=== PATIENT | male | born 1975 | race Caucasian/White ===

== ENCOUNTER 2017-01-29 05:42 | Emergency (ER) | payer SELFPAY ==
[~2017-01-29] VITALS: Ht 172.7 cm; Wt 83.9 kg
[2017-01-29 06:37] LABS: BASO % 1 % (0-3); EOS % 9 % (0-3); HEMATOCRIT 40.2 % (39.0-53.0); LYMPH # 2.2 x10^3/uL (1.0-4.8); LYMPH % 31 % (24-48); MEAN CORPUSCULAR HEMOGLOBIN 32 pg (25-35); MEAN CORPUSCULAR HGB CONC 35 g/dL (31-37); MEAN CORPUSCULAR VOLUME 91 fL (79-100); MONO % 7 % (0-9); NEUT % 52 % (31-73); PLATELET COUNT 283 x10^3/uL (140-400); RED BLOOD COUNT 4.42 x10^6/uL (4.30-5.70); RED CELL DISTRIBUTION WIDTH 12.7 % (11.5-14.5)
[2017-01-29 06:49] LABS: CALCIUM 8.9 mg/dL (8.5-10.1); CREATININE 1.2 mg/dL (0.7-1.3); GFR 66.1; POTASSIUM 3.9 mmol/L (3.5-5.1)
[2017-01-29 06:55] LABS: ALBUMIN 4.2 g/dL (3.4-5.0); ALBUMIN/GLOBULIN RATIO 1.1 (1.0-1.7); TOTAL BILIRUBIN 0.3 mg/dL (0.2-1.0)
--- NOTE | 2017-01-29 06:57 | PHYS DOC ---
Past Medical History Past Medical History: No Pertinent History Past Surgical History: No Surgical History Additional Information: vape with nicotine Alcohol Use: Occasionally Additional Information: regularly 6-7beers on thursday Drug Use: None Adult General Chief Complaint Chief Complaint: ABDOMINAL PAIN HPI HPI Patient is a 41 year old male who presents with complaint of abdominal pain. Patient states that his pain started approximately 4 hours prior to arrival. Patient states that he has had recurrent episodes of similar abdominal pain over the past few years. Patient states that his pain typically starts around his belly button and then radiates up towards the top of his abdomen. Patient states that he also gets pain radiates towards the right side of his back. The patient states currently his pain has improved and is rating it 2 out of 10. Patient states that the pain typically comes on at nighttime. Patient has had no formal medical workup for the cause of his symptoms. Patient does not follow the primary care physician at this time. Patient states that he is on daily Zantac which had previously helped control his symptoms. Patient has not missed any doses. Patient did have associated nausea and vomiting with onset of symptoms. Patient states that he ate at approximately 5 last night, eating a cheeseburger and fries. Review of Systems Review of Systems Constitutional: Denies fever or chills [] Eyes: Denies change in visual acuity, redness, or eye pain [] HENT: Denies nasal congestion or sore throat [] Respiratory: Denies cough or shortness of breath [] Cardiovascular: Denies chest pain or edema [] GI: Nausea, vomiting, epigastric abdominal pain, denies bloody stools or diarrhea [] : Denies dysuria or hematuria [] Musculoskeletal: Denies back pain or joint pain [] Integument: Denies rash or skin lesions [] Neurologic: Denies headache, focal weakness or sensory changes [] Current Medications Current Medications Current Medications Medications (Trade) Dose Ordered Sig/Rachele Start Time Stop Time Status Last Admin Dose Admin Al Hydroxide/Mg Hydroxide (Mylanta Plus Xs) 30 ml 1X ONCE 01/29/17 07:15 01/29/17 07:16 DC 01/29/17 07:24 30 ML Dicyclomine HCl (Bentyl) 10 mg 1X ONCE 01/29/17 07:15 01/29/17 07:16 DC 01/29/17 07:29 10 MG Ondansetron HCl (Zofran) 4 mg 1X ONCE 01/29/17 07:15 01/29/17 07:16 DC 01/29/17 07:26 4 MG Sodium Chloride 1,000 ml @ 1,000 mls/hr Q1H 01/29/17 07:15 01/29/17 08:14 DC 01/29/17 07:22 1,000 MLS/HR Allergies Allergies Allergies Coded Allergies Type Severity Reaction Last Updated Verified No Known Drug Allergies 01/29/17 No No known drug allergies Physical Exam Physical Exam Constitutional: Alert, afebrile, no acute distress. [] HENT: Normocephalic, atraumatic, bilateral external ears normal, oropharynx moist, no oral exudates, nose normal. [] Eyes: PERRLA, EOMI, conjunctiva normal, no discharge. [] Neck: Normal range of motion, no tenderness, supple, no stridor. [] Cardiovascular:Heart rate regular rhythm, no murmur [] Lungs & Thorax: Bilateral breath sounds clear to auscultation [] Abdomen: Bowel sounds normal, soft, mild epigastric tenderness to palpation, no guarding or rebound tenderness, no masses, no pulsatile masses. [] Skin: Warm, dry, no erythema, no rash. [] Back: No tenderness, no CVA tenderness. [] Extremities: No tenderness, no cyanosis, no clubbing, ROM intact, no edema. [] Neurologic: Alert and oriented X 3, normal motor function, normal sensory function, no focal deficits noted. [] Current Patient Data Vital Signs Vital Signs Date Time Temp Pulse Resp B/P (MAP) Pulse Ox O2 Delivery O2 Flow Rate FiO2 01/29/17 07:32 56 13 121/68 (85) 97 Room Air 01/29/17 05:48 98.4 98.4 Lab Values Laboratory Tests Test 01/29/17 05:55 01/29/17 08:20 White Blood Count 7.0 x10^3/uL (4.0-11.0) Red Blood Count 4.42 x10^6/uL (4.30-5.70) Hemoglobin 14.0 g/dL (13.0-17.5) Hematocrit 40.2 % (39.0-53.0) Mean Corpuscular Volume 91 fL (79-100) Mean Corpuscular Hemoglobin 32 pg (25-35) Mean Corpuscular Hemoglobin Concent 35 g/dL (31-37) Red Cell Distribution Width 12.7 % (11.5-14.5) Platelet Count 283 x10^3/uL (140-400) Neutrophils (%) (Auto) 52 % (31-73) Lymphocytes (%) (Auto) 31 % (24-48) Monocytes (%) (Auto) 7 % (0-9) Eosinophils (%) (Auto) 9 % (0-3) H Basophils (%) (Auto) 1 % (0-3) Neutrophils # (Auto) 3.6 x10^3uL (1.8-7.7) Lymphocytes # (Auto) 2.2 x10^3/uL (1.0-4.8) Monocytes # (Auto) 0.5 x10^3/uL (0.0-1.1) Eosinophils # (Auto) 0.7 x10^3/uL (0.0-0.7) Basophils # (Auto) 0.0 x10^3/uL (0.0-0.2) Sodium Level 140 mmol/L (136-145) Potassium Level 3.9 mmol/L (3.5-5.1) Chloride Level 104 mmol/L (98-107) Carbon Dioxide Level 28 mmol/L (21-32) Anion Gap 8 (6-14) Blood Urea Nitrogen 19 mg/dL (8-26) Creatinine 1.2 mg/dL (0.7-1.3) Estimated GFR (Cockcroft-Gault) 66.1 BUN/Creatinine Ratio 16 (6-20) Glucose Level 130 mg/dL (70-99) H Calcium Level 8.9 mg/dL (8.5-10.1) Total Bilirubin 0.3 mg/dL (0.2-1.0) Aspartate Amino Transferase (AST) 30 U/L (15-37) Alanine Aminotransferase (ALT) 48 U/L (16-63) Alkaline Phosphatase 71 U/L (46-116) Total Protein 8.0 g/dL (6.4-8.2) Albumin 4.2 g/dL (3.4-5.0) Albumin/Globulin Ratio 1.1 (1.0-1.7) Lipase 157 U/L (73-393) Urine Color Yellow Urine Clarity Cloudy Urine pH 6.0 Urine Specific [place] >=1.030 Urine Protein Negative mg/dL (NEG-TRACE) Urine Glucose (UA) Negative mg/dL (NEG) Urine Ketones (Stick) Negative mg/dL (NEG) Urine Blood Negative (NEG) Urine Nitrite Negative (NEG) Urine Bilirubin Negative (NEG) Urine Urobilinogen Dipstick 0.2 mg/dL (0.2 mg/dL) Urine Leukocyte Esterase Negative (NEG) Urine RBC 0 /HPF (0-2) Urine WBC Occ /HPF (0-4) Urine Squamous Epithelial Cells Occ /LPF Urine Renal Epithelial Cells Few /LPF Urine Amorphous Sediment Present /HPF Urine Bacteria Few /HPF (0-FEW) Urine Mucus Marked /LPF Laboratory Tests 01/29/17 05:55 Laboratory Tests 01/29/17 05:55 EKG EKG Not performed [] Radiology/Procedures Radiology/Procedures [facility] [address] [place] [address] IMAGING REPORT Signed PATIENT: KATHLEEN CABRAL ACCOUNT: [id number] : 1975 LOCATION: ER AGE: 41 SEX: M EXAM STATUS: REG ER ORD. PHYSICIAN: RAMON JOHNSON MD REASON: epigastric pain PROCEDURE: ABDOMEN LTD Ultrasound abdomen limited 01/29/2017 Clinical indication: Epigastric pain. Comparison: None. Findings: Visualized upper abdominal aorta and IVC are unremarkable. The visualized portions of the liver demonstrate mild increased echogenicity suggestive of steatosis which limits underlying parenchyma. No definite suspicious mass or fluid collection the visualized portions. Right kidney is present measuring up to 10.3 cm without collecting system dilatation. Gallbladder is nondilated with minimal amount of layering sludge and no gallbladder wall thickening, cholelithiasis or pericholecystic fluid. Common bile duct is normal in caliber measuring 3 mm. No intrahepatic biliary ductal dilatation. Impression: 1. Minimal gallbladder sludge without sonographic evidence of acute cholecystitis. 2. Mild hepatic steatosis. DICTATED and SIGNED BY: CEZAR WHYTE MD DATE: 01/29/17 0741 CC: RAMON JOHNSON MD; NO PCP ~ [] Course & Med Decision Making Course & Med Decision Making Pertinent Labs and Imaging studies reviewed. (See chart for details) The patient was given IV fluids, Bentyl, Maalox, and Zofran for symptoms. Patient's lab work was unremarkable. Patient's ultrasound imaging showed gallbladder sludge but no evidence of common bile duct obstruction or cholelithiasis. The patient will be continued on Bentyl and will be given a small prescription of [place] to help with breakthrough pain symptoms. Patient referred to Dr. Yang for follow-up in one week. Recommended return to the emergency department for any worsening symptoms. Patient voiced understanding and in agreement with treatment plan. Dragon Disclaimer Dragon Disclaimer This electronic medical record was generated, in whole or in part, using a voice recognition dictation system. Departure Departure Impression: Primary Impression: Abdominal pain Disposition: HOME, SELF-CARE Condition: IMPROVED Referrals: NO PCP (PCP) JOEL YANG MD Patient Instructions: Abdominal Pain (Nonspecific) Additional Instructions: Follow-up with Dr. Yang of gastroenterology in 1 week for reevaluation. Return to the emergency department for any worsening symptoms. Scripts Hydrocodone/Apap 5-325 (NORCO 5-325 TABLET) 1 Each Tablet 1-2 TAB PO Q4-6HRS Y for PAIN, #20 TAB Prov: RAMON JOHNSON MD 01/29/17 Dicyclomine Hcl (BENTYL) 10 Mg Capsule 1 CAP PO TID, #90 CAP 0 Refills Prov: RAMON JOHNSON MD 01/29/17 Ondansetron (ZOFRAN ODT) 4 Mg Tab.rapdis 1 TAB SL Q8HRS Y for NAUSEA/VOMITING, #15 TAB Prov: RAMON JOHNSON MD 01/29/17 Problem Qualifiers Primary Impression: Abdominal pain Abdominal location: epigastric Qualified Codes: R10.13 - Epigastric pain RAMON JOHNSON MD Jan 29, 2017 06:57
[2017-01-29] MEDS ORDERED: IV NORMAL SALINE 1000ML BAG 1,000 ML IV SCH (07:15)
[2017-01-29] MEDS ORDERED: MAG HYDROX/ALUMINUM HYD/SIMETH 30 ML ORAL.SUSP PO ONE (07:15)
[2017-01-29] MEDS ORDERED: DICYCLOMINE 20 MG/2 ML AMPUL. IM ONE (07:15)
[2017-01-29] MEDS ORDERED: ONDANSETRON PF 4 MG/2 ML VIAL. IV ONE (07:15)
--- NOTE | 2017-01-29 07:48 | RAD ---
Ultrasound abdomen limited 01/29/2017 Clinical indication: Epigastric pain. Comparison: None. Findings: Visualized upper abdominal aorta and IVC are unremarkable. The visualized portions of the liver demonstrate mild increased echogenicity suggestive of steatosis which limits underlying parenchyma. No definite suspicious mass or fluid collection the visualized portions. Right kidney is present measuring up to 10.3 cm without collecting system dilatation. Gallbladder is nondilated with minimal amount of layering sludge and no gallbladder wall thickening, cholelithiasis or pericholecystic fluid. Common bile duct is normal in caliber measuring 3 mm. No intrahepatic biliary ductal dilatation. Impression: 1. Minimal gallbladder sludge without sonographic evidence of acute cholecystitis. 2. Mild hepatic steatosis.
[2017-01-29 08:45] VITALS: BP 112/65
[2017-01-29 08:46] LABS: BILIRUBIN,URINE NEGATIVE (NEG); GLUCOSE,URINE NEGATIVE (NEG); NITRITE,URINE NEGATIVE (NEG); PROTEIN,URINE NEGATIVE (NEG-TRACE); UROBILINOGEN,URINE 0.2 mg/dL (0.2 mg/dL)
[2017-01-29 08:56] LABS: BACTERIA,URINE FEW /HPF (0-FEW); RBC,URINE 0 /HPF (0-2); SQUAMOUS EPITHELIAL CELL,UR OCC /LPF; WBC,URINE OCC /HPF (0-4)
[2017-01-29] MEDS ORDERED: DICY10CA53 PO (09:11)
[2017-01-29] MEDS ORDERED: HYDR-971 PO (09:11)
[2017-01-29] MEDS ORDERED: ONDA4TAB10 SL (09:11)
== END 2017-01-29 09:21 | disposition home or self-care (01) ==
LOC: ER 05:42
DX: R10.13 Epigastric pain (principal); R11.2 Nausea with vomiting, unspecified
CPT/HCPCS: 36415; 76705; 80053; 81001; 83690; 85027; 96361; 96372; 96374; 99285; J0500; J2405; J7030

== ENCOUNTER 2017-02-07 23:34 | Inpatient (IN) | payer SELFPAY ==
[~2017-02-07] VITALS: Ht 172.7 cm; Wt 76.0 kg
[~2017-02-07 23:34] MED LIST: DICY10CA53 PO; HYDR-971 PO; ONDA4TAB10 SL
[2017-02-08] MEDS ORDERED: IV NORMAL SALINE 500ML BAG 500 ML IV ONE
[2017-02-08] MEDS ORDERED: LIDO:MAALOX:DONNATAL 1:1:1 15 ML SINGLE DOSE SWSW ONE
[2017-02-08] MEDS ORDERED: ONDANSETRON PF 4 MG/2 ML VIAL. IV ONE
[2017-02-08 00:14] LABS: BASO % 0 % (0-3); EOS % 3 % (0-3); HEMATOCRIT 38.9 % (39.0-53.0); HEMOGLOBIN 13.4 g/dL (13.0-17.5); LYMPH # 2.6 x10^3/uL (1.0-4.8); LYMPH % 29 % (24-48); MEAN CORPUSCULAR HEMOGLOBIN 32 pg (25-35); MEAN CORPUSCULAR HGB CONC 34 g/dL (31-37); MEAN CORPUSCULAR VOLUME 92 fL (79-100); MONO % 6 % (0-9); NEUT % 61 % (31-73); PLATELET COUNT 254 x10^3/uL (140-400); RED BLOOD COUNT 4.24 x10^6/uL (4.30-5.70); RED CELL DISTRIBUTION WIDTH 12.6 % (11.5-14.5); WHITE BLOOD COUNT 8.9 x10^3/uL (4.0-11.0)
[2017-02-08 00:23] LABS: CALCIUM 8.7 mg/dL (8.5-10.1); CREATININE 1.2 mg/dL (0.7-1.3); GFR 66.1; POTASSIUM 3.7 mmol/L (3.5-5.1)
[2017-02-08 00:30] LABS: ALBUMIN 4.1 g/dL (3.4-5.0); ALBUMIN/GLOBULIN RATIO 1.1 (1.0-1.7); TOTAL BILIRUBIN 0.2 mg/dL (0.2-1.0); TOTAL PROTEIN 7.8 g/dL (6.4-8.2)
[2017-02-08] MEDS ORDERED: CONTRAST GIVEN MC PRN (01:15)
[2017-02-08] MEDS ORDERED: IOHEXOL 300 MG/ML 75 ML VIAL IV ONE (01:15)
--- NOTE | 2017-02-08 01:22 | PHYS DOC ---
Past Medical History Past Medical History: No Pertinent History Past Surgical History: No Surgical History Alcohol Use: Occasionally Drug Use: None Adult General Chief Complaint Chief Complaint: ABDOMINAL PAIN HPI HPI Patient is a 41 year old male who presents with abdominal pain. The patient reports several month history of gradually worsening epigastric abdominal pain, usually occurring several hours after eating but not necessarily worse with greasy or fatty foods. He states symptoms have become more frequent now appearing daily, usually at night. Denies fevers or chills, nausea or vomiting, hematemesis, diarrhea or constipation, hematochezia or melena, dysuria or hematuria. Previously healthy, no abdominal surgeries. Does not have a PCP. Seen here 9 days ago for same symptoms, at that time had ultrasound showing sludge in the gallbladder without cholecystitis. Review of Systems Review of Systems Constitutional: Denies fever or chills Eyes: Denies change in visual acuity HENT: Denies nasal congestion or sore throat Respiratory: Denies cough or shortness of breath Cardiovascular: Denies chest pain or edema GI: Reports abdominal pain, denies nausea, vomiting, bloody stools or diarrhea : Denies dysuria or hematuria Musculoskeletal: Denies back pain or joint pain Integument: Denies rash or skin lesions Neurologic: Denies headache, focal weakness or sensory changes Current Medications Current Medications Current Medications Medications (Trade) Dose Ordered Sig/Rachele Start Time Stop Time Status Last Admin Dose Admin Fentanyl Citrate (Fentanyl 2ml Vial) 50 mcg PRN Q15MIN PRN 02/08/17 00:00 02/08/17 23:59 Info (Do NOT chart on this entry -- for MONITORING) 1 each PRN DAILY PRN 02/08/17 01:15 02/10/17 01:14 Iohexol (Omnipaque 300 Mg/ml) 75 ml 1X ONCE 02/08/17 01:15 02/08/17 01:16 DC 02/08/17 01:26 75 ML Multi-Ingredient Mouthwash/Gargle (Gi Cocktail Single Dose) 15 ml 1X ONCE 02/08/17 00:00 02/08/17 00:01 DC 02/08/17 00:50 15 ML Ondansetron HCl (Zofran) 4 mg 1X ONCE 02/08/17 00:00 02/08/17 00:01 DC 02/08/17 00:50 4 MG Sodium Chloride 500 ml @ 0 mls/hr 1X ONCE 02/08/17 00:00 02/08/17 00:01 DC 02/08/17 00:51 0 MLS/HR Allergies Allergies Allergies Coded Allergies Type Severity Reaction Last Updated Verified No Known Drug Allergies 01/29/17 No Physical Exam Physical Exam Constitutional: Well developed, well nourished, no acute distress, non-toxic appearance. HENT: Normocephalic, atraumatic, bilateral external ears normal, oropharynx moist, nose normal. Eyes: PERRLA, EOMI, conjunctiva normal, no discharge. Neck: supple, no stridor. Cardiovascular: RRR, no murmurs, no edema. Lungs & Thorax: LCTAB, no wheezing, no respiratory distress. Abdomen: soft, epigastric and right upper quadrant pain without rebound or guarding, no masses or pulsatile masses, nondistended. Skin: Warm, dry, no erythema, no rash. Back: No CVA tenderness. Extremities: No tenderness, no edema. Neurologic: Alert and oriented X 3, no focal deficits noted. Psychologic: Affect normal, judgement normal, mood normal. Current Patient Data Vital Signs Vital Signs Date Time Temp Pulse Resp B/P (MAP) Pulse Ox O2 Delivery O2 Flow Rate FiO2 02/07/17 23:40 97.8 61 18 139/68 (91) 98 Room Air 97.8 Lab Values Laboratory Tests Test 02/07/17 23:45 White Blood Count 8.9 x10^3/uL (4.0-11.0) Red Blood Count 4.24 x10^6/uL (4.30-5.70) L Hemoglobin 13.4 g/dL (13.0-17.5) Hematocrit 38.9 % (39.0-53.0) L Mean Corpuscular Volume 92 fL (79-100) Mean Corpuscular Hemoglobin 32 pg (25-35) Mean Corpuscular Hemoglobin Concent 34 g/dL (31-37) Red Cell Distribution Width 12.6 % (11.5-14.5) Platelet Count 254 x10^3/uL (140-400) Neutrophils (%) (Auto) 61 % (31-73) Lymphocytes (%) (Auto) 29 % (24-48) Monocytes (%) (Auto) 6 % (0-9) Eosinophils (%) (Auto) 3 % (0-3) Basophils (%) (Auto) 0 % (0-3) Neutrophils # (Auto) 5.4 x10^3uL (1.8-7.7) Lymphocytes # (Auto) 2.6 x10^3/uL (1.0-4.8) Monocytes # (Auto) 0.6 x10^3/uL (0.0-1.1) Eosinophils # (Auto) 0.2 x10^3/uL (0.0-0.7) Basophils # (Auto) 0.0 x10^3/uL (0.0-0.2) Sodium Level 139 mmol/L (136-145) Potassium Level 3.7 mmol/L (3.5-5.1) Chloride Level 104 mmol/L (98-107) Carbon Dioxide Level 27 mmol/L (21-32) Anion Gap 8 (6-14) Blood Urea Nitrogen 18 mg/dL (8-26) Creatinine 1.2 mg/dL (0.7-1.3) Estimated GFR (Cockcroft-Gault) 66.1 BUN/Creatinine Ratio 15 (6-20) Glucose Level 157 mg/dL (70-99) H Calcium Level 8.7 mg/dL (8.5-10.1) Total Bilirubin 0.2 mg/dL (0.2-1.0) Aspartate Amino Transferase (AST) 23 U/L (15-37) Alanine Aminotransferase (ALT) 49 U/L (16-63) Alkaline Phosphatase 69 U/L (46-116) Troponin I Quantitative < 0.017 ng/mL (0.000-0.055) Total Protein 7.8 g/dL (6.4-8.2) Albumin 4.1 g/dL (3.4-5.0) Albumin/Globulin Ratio 1.1 (1.0-1.7) Lipase 181 U/L (73-393) Laboratory Tests 02/07/17 23:45 Laboratory Tests 02/07/17 23:45 EKG EKG Interpreted by me: Normal sinus rhythm rate 63, no acute ST or T wave changes, normal intervals, no ectopy. [] Radiology/Procedures Radiology/Procedures PROCEDURE: CT ABD PELV W/ IV CONTRST ONLY EXAM: Abdomen and pelvis CT with intravenous contrast. HISTORY: 41-year-old male with upper abdominal pain. TECHNIQUE: Computed tomographic images of the abdomen and pelvis were obtained following the administration of 75 cc of Omni 300 intravenous contrast. Multiplanar reformatting was performed. PQRS compliance statement: One or more of the following individualized dose reduction techniques were utilized for this examination: 1. Automated exposure control 2. Adjustment of the mA and/or kV according to patient size 3. Use of iterative reconstruction technique COMPARISON: None. FINDINGS: Bibasilar atelectasis is present. The liver, spleen, pancreas, adrenal glands and bilateral kidneys demonstrate no focal abnormality. Mild gallbladder wall thickening is suggested, without calcified gallstones nor pericholecystic fluid seen. The GI tract demonstrates no dilated bowel loops to suggest obstruction. Appendix is normal in caliber and air-filled in the right lower quadrant. The urinary bladder is grossly unremarkable. No intra-abdominal or pelvic free fluid, free air or significant lymphadenopathy is seen. Aorta is normal in caliber. Overlying soft tissues and visualized osseous structures demonstrate no acute or suspicious finding. IMPRESSION: Mild gallbladder wall thickening, without gallstones nor pericholecystic fluid seen. Acute cholecystitis is a consideration, best evaluated with ultrasound. Otherwise, no acute intra-abdominal or pelvic process seen. Electronically signed by: Jana Luke MD (02/08/2017 1:42 AM) [facility] DICTATED and SIGNED BY: JANA LUKE MD DATE: 02/08/17 0137[] Course & Med Decision Making Course & Med Decision Making Pertinent Labs and Imaging studies reviewed. (See chart for details) The patient lives with abdominal pain. Give IV fluids, Zofran, pain medication. He did feel better. Obtained labs, UA, EKG, CT of the abdomen and pelvis. CT shows no significant abnormality except thickening of the gallbladder wall which was not present on ultrasound at previous visit. There is possibility of acute cholecystitis. He is afebrile with normal white blood cell count, normal LFTs. Likely symptomatic cholelithiasis but he does remain symptomatic with increasingly worse symptoms. He does not feel well enough to go home. I recommended admission to the hospital for surgery/possible GI consultation. For now we'll hold off antibiotics but will repeat ultrasound to evaluate for cholecystitis. Antibiotics not given at this time. Discussed with Dr. Little who agrees to admit to inpatient status. Surgery consult to Dr. Rodriguez. The patient is being admitted in stable condition. [] Dragon Disclaimer Dragon Disclaimer This electronic medical record was generated, in whole or in part, using a voice recognition dictation system. Departure Departure Impression: Primary Impression: Abdominal pain Disposition: ADMITTED INPATIENT Admitting Physician: Lucero Little Condition: STABLE Referrals: NO PCP (PCP) MIKE SHERMAN MD Feb 08, 2017 01:22
--- NOTE | 2017-02-08 01:45 | RAD ---
EXAM: Abdomen and pelvis CT with intravenous contrast. HISTORY: 41-year-old male with upper abdominal pain. TECHNIQUE: Computed tomographic images of the abdomen and pelvis were obtained following the administration of 75 cc of Omni 300 intravenous contrast. Multiplanar reformatting was performed. RS compliance statement: One or more of the following individualized dose reduction techniques were utilized for this examination: 1. Automated exposure control 2. Adjustment of the mA and/or kV according to patient size 3. Use of iterative reconstruction technique COMPARISON: None. FINDINGS: Bibasilar atelectasis is present. The liver, spleen, pancreas, adrenal glands and bilateral kidneys demonstrate no focal abnormality. Mild gallbladder wall thickening is suggested, without calcified gallstones nor pericholecystic fluid seen. The GI tract demonstrates no dilated bowel loops to suggest obstruction. Appendix is normal in caliber and air-filled in the right lower quadrant. The urinary bladder is grossly unremarkable. No intra-abdominal or pelvic free fluid, free air or significant lymphadenopathy is seen. Aorta is normal in caliber. Overlying soft tissues and visualized osseous structures demonstrate no acute or suspicious finding. IMPRESSION: Mild gallbladder wall thickening, without gallstones nor pericholecystic fluid seen. Acute cholecystitis is a consideration, best evaluated with ultrasound. Otherwise, no acute intra-abdominal or pelvic process seen. Electronically signed by: Chloé Luke MD (02/08/2017 1:42 AM) [place] [id number]
[2017-02-08 01:47] LABS: BILIRUBIN,URINE NEGATIVE (NEG); GLUCOSE,URINE NEGATIVE (NEG); NITRITE,URINE NEGATIVE (NEG); PROTEIN,URINE NEGATIVE (NEG-TRACE); UROBILINOGEN,URINE 0.2 mg/dL (0.2 mg/dL)
[2017-02-08 02:06] LABS: BACTERIA,URINE 0 /HPF (0-FEW); RBC,URINE OCC /HPF (0-2); SQUAMOUS EPITHELIAL CELL,UR FEW /LPF; WBC,URINE 0 /HPF (0-4)
[2017-02-08] MEDS ORDERED: ONDANSETRON PF 4 MG/2 ML VIAL. IV PRN ×4 (02:30→13:45)
[2017-02-08 02:39] VITALS: BP 147/79
[2017-02-08] MEDS: IV NORMAL SALINE 1000ML BAG 1,000 ML IV SCH ×3 (02:51→18:00)
[2017-02-08] MEDS: MORPHINE SULFATE 4 MG/ML DISP.SYRIN. IV PRN ×2 (03:03→17:33)
[2017-02-08 07:00] VITALS: BP_SYST 171; BP_SYST 97; BP_DIAS 105; BP_DIAS 62
[2017-02-08] MEDS: DICYCLOMINE HCL 10 MG CAPSULE PO SCH ×3 (09:00→20:30)
[2017-02-08] MEDS ORDERED: HYDROcodone/APAP 5/325MG 1 TAB TABLET PO PRN ×2 (09:00→13:45)
[2017-02-08] MEDS ORDERED: ACETAMINOPHEN 500 MG TABLET PO PRN (09:00)
[2017-02-08] MEDS ORDERED: ONDANSETRON ODT 4 MG TAB.RAPDIS. PO PRN (09:00)
--- NOTE | 2017-02-08 09:09 | RAD ---
Ultrasound of the right upper quadrant of the abdomen 02/08/2017 Clinical history: Abdominal pain for 2 days. Technique: A real-time ultrasound examination of the right upper quadrant of the abdomen was performed. Multiple images were obtained. Findings: Comparison is made to the patient's CT scan of the abdomen performed earlier today. The gallbladder is contracted. A 1.2 cm gallstone is seen within the neck of the gallbladder. The gallbladder wall is thickened measuring 6 mm. Pericholecystic fluid is seen. These findings are consistent with acute cholecystitis. The common bile duct measures 4 mm in diameter which is within limits. The liver is normal in size measuring 15.5 cm in length. Increased echogenicity of the liver parenchyma is seen consistent with mild fatty infiltration. The visualized portions of the pancreas and right kidney are within normal limits. Impression: Findings consistent with acute cholecystitis.
[2017-02-08 10:30] VITALS: BP 113/70
[2017-02-08] MEDS ORDERED: MIDAZOLAM HCL/PF 2 MG/2 ML VIAL. ONE (10:38)
[2017-02-08] MEDS ORDERED: DESFLURANE 61 TO 120 MINUTES IH ONE (10:38)
[2017-02-08] MEDS ORDERED: fentaNYL PF VIAL 100 MCG/2 ML VIAL ONE ×2 (10:38→12:03)
[2017-02-08] MEDS ORDERED: LIDOCAINE 2% PF Vial for OR 5 ML VIAL. ONE (10:39)
[2017-02-08] MEDS ORDERED: DEXAMETHASONE SOD PHOS 20 MG/5 ML VIAL. ONE (10:39)
[2017-02-08] MEDS ORDERED: PROPOFOL 20 ML IV ONE (10:39)
[2017-02-08] MEDS ORDERED: NEOSTIGMINE 10 MG/10 ML VIAL. ONE (10:39)
[2017-02-08] MEDS ORDERED: KETOROLAC 60 MG/2 ML INJ FOR OR. ONE (10:39)
[2017-02-08] MEDS ORDERED: GLYCOPYRROLATE 1 MG/5 ML VIAL. ONE (10:39)
[2017-02-08] MEDS ORDERED: ONDANSETRON PF 4 MG/2 ML VIAL. ONE (10:39)
[2017-02-08] MEDS ORDERED: IV RINGERS,LACTATED 1000ML 1,000 ML IV SCH (10:59)
[2017-02-08] MEDS ORDERED: MORPHINE SULFATE 2 MG/ML DISP.SYRIN. IV PRN (11:00)
[2017-02-08] MEDS ORDERED: fentaNYL PF VIAL 100 MCG/2 ML VIAL IV PRN ×2 (11:00)
[2017-02-08] MEDS ORDERED: HYDROmorphone 2 MG/ML VIAL IV PRN (11:00)
[2017-02-08] MEDS ORDERED: PROCHLORPERAZINE 10 MG/2 ML VIAL. IV PRN (11:00)
[2017-02-08] MEDS ORDERED: LIDOCAINE 1% 1 ML SYRINGE. ID PRN (11:00)
[2017-02-08] MEDS ORDERED: IOHEXOL 300 MG/ML 50 ML VIAL. ONE (11:01)
[2017-02-08] MEDS ORDERED: SURGICEL HEMOSTAT 4X8 EACH. ONE (11:01)
[2017-02-08] MEDS ORDERED: BISACODYL 10 MG SUPP.RECT. ONE (11:01)
[2017-02-08] MEDS ORDERED: BUPIVAC MPF-EPI 0.5%-1:200000 10 ML VIAL. ONE (11:01)
[2017-02-08] MEDS ORDERED: HEPARIN for IV BOLUS 10,000 UNIT/10 ML VIAL. ONE (11:01)
--- NOTE | 2017-02-08 11:13 | PDOC1 ---
History and Physical Date of Admission Date of Admission DATE: 02/08/17 TIME: 11:08 Identification/Chief Complaint Chief Complaint abd pain Problems: Source Source: Caregiver, Chart review, Patient History of Present Illness History of Present Illness 41 y.o HISDpanic male, speaks yakut, 4-5 mo hx epigastic pain, intermittent, waxes and wanes, he noticed more at night and maybe after eating food, got worse few days ago and went to ER last night, NO fevers, emesis or change inBM. CT shows GB Sludge. US shows: Impression: Findings consistent with acute cholecystitis. Pt agreeable to sx if needs. HAs been NPO LAbs ok. VS ok ABd exam: tenderness in epigatsric area, and RUQ< no guarding no rebound, NO known alleviating factors, Past Medical History Cardiovascular: No pertinent hx Pulmonary: No pertinent hx GI: No pertinent hx Heme/Onc: No pertinent hx Hepatobiliary: No pertinent hx Psych: No pertinent hx Rheumatologic: No pertinent hx Infectious disease: No pertinent hx ENT: No pertinent hx Renal/: No pertinent hx Endocrine: No pertinent hx Dermatology: No pertinent hx Past Surgical History Past Surgical History: No pertinent history Family History Family History: Family History Unknown Social History Smoke: No ALCOHOL: occassional Drugs: None Current Problem List Problem List Problems Medical Problems: (1) Abdominal pain Status: Acute Problems: Current Medications Current Medications Current Medications Sodium Chloride 500 ml @ 0 mls/hr 1X ONCE IV Last administered on 02/08/17 00 :51; Start 02/08/17 at 00:00; Stop 02/08/17 at 00:01; Status DC Ondansetron HCl (Zofran) 4 mg 1X ONCE IV Last administered on 02/08/17 00:50 ; Start 02/08/17 at 00:00; Stop 02/08/17 at 00:01; Status DC Multi-Ingredient Mouthwash/Gargle (Gi Cocktail Single Dose) 15 ml 1X ONCE SWSW Last administered on 02/08/17 00:50; Start 02/08/17 at 00:00; Stop 02/08/17 at 00:01; Status DC Fentanyl Citrate (Fentanyl 2ml Vial) 50 mcg PRN Q15MIN PRN IV PAIN GREATER THAN 3/10; Start 02/08/17 at 00:00; Stop 02/08/17 at 23:59 Iohexol (Omnipaque 300 Mg/ml) 75 ml 1X ONCE IV Last administered on 02/08/17 01:26; Start 02/08/17 at 01:15; Stop 02/08/17 at 01:16; Status DC Info (Do NOT chart on this entry -- for MONITORING) 1 each PRN DAILY PRN MC SEE COMMENTS; Start 02/08/17 at 01:15; Stop 02/10/17 at 01:14 Ondansetron HCl (Zofran) 4 mg PRN Q8HRS PRN IV NAUSEA/VOMITING Last administered on 02/08/17 03:02; Start 02/08/17 at 02:30; Stop 02/08/17 at 08:58 ; Status DC Morphine Sulfate 4 mg PRN Q2HR PRN IV PAIN Last administered on 02/08/17 03:03 ; Start 02/08/17 at 02:00; Stop 02/09/17 at 01:59 Sodium Chloride 1,000 ml @ 125 mls/hr Q8H IV Last administered on 02/08/17 02 :51; Start 02/08/17 at 02:00; Stop 02/09/17 at 01:59 Cefazolin Sodium/ Dextrose 50 ml @ 100 mls/hr 1X PREOP PRN IV PRE-OP; Start at 08:15; Stop 02/09/17 at 18:00 Ondansetron HCl (Zofran) 4 mg PRN Q6HRS PRN IV NAUSEA/VOMITING; Start 02/08/17 at 08:57; Stop 02/09/17 at 08:56 Acetaminophen (Tylenol) 500 mg PRN Q6HRS PRN PO MILD PAIN / TEMP; Start at 09:00 Dicyclomine HCl (Bentyl) 10 mg TID PO ; Start 02/08/17 at 09:00 Acetaminophen/ Hydrocodone Bitart (Lortab 5/325) 1 tab PRN TID PRN PO PAIN; Start 02/08/17 at 09:00 Ondansetron HCl (Zofran Odt) 4 mg PRN Q8HRS PRN PO NAUSEA/VOMITING; Start 02/08 at 09:00 Desflurane (Suprane) 60 ml STK-MED ONCE IH ; Start 02/08/17 at 10:38; Stop 02/08 at 10:39; Status DC Midazolam HCl (Versed) 2 mg STK-MED ONCE .ROUTE ; Start 02/08/17 at 10:38; Stop 02/08/17 at 10:39; Status DC Fentanyl Citrate (Fentanyl 2ml Vial) 100 mcg STK-MED ONCE .ROUTE ; Start at 10:38; Stop 02/08/17 at 10:39; Status DC Glycopyrrolate (Robinul) 1 mg STK-MED ONCE .ROUTE ; Start 02/08/17 at 10:39; Stop 02/08/17 at 10:40; Status DC Propofol 20 ml @ As Directed STK-MED ONCE IV ; Start 02/08/17 at 10:39; Stop at 10:40; Status DC Dexamethasone Sodium Phosphate (Decadron) 20 mg STK-MED ONCE .ROUTE ; Start at 10:39; Stop 02/08/17 at 10:40; Status DC Ondansetron HCl (Zofran) 4 mg STK-MED ONCE .ROUTE ; Start 02/08/17 at 10:39; Stop 02/08/17 at 10:40; Status DC Ketorolac Tromethamine (Toradol For Or Only) 60 mg STK-MED ONCE .ROUTE ; Start 02/08/17 at 10:39; Stop 02/08/17 at 10:40; Status DC Neostigmine Methylsulfate (Bloxiverz) 10 mg STK-MED ONCE .ROUTE ; Start at 10:39; Stop 02/08/17 at 10:40; Status DC Lidocaine HCl (Lidocaine Pf 2% Vial) 5 ml STK-MED ONCE .ROUTE ; Start 02/08/17 at 10:39; Stop 02/08/17 at 10:40; Status DC Ondansetron HCl (Zofran) 4 mg PRN Q6HRS PRN IV NAUSEA/VOMITING; Start 02/08/17 at 11:00; Stop 02/09/17 at 10:59 Fentanyl Citrate (Fentanyl 2ml Vial) 25 mcg PRN Q5MIN PRN IV MILD PAIN; Start 02/08/17 at 11:00; Stop 02/09/17 at 10:59 Fentanyl Citrate (Fentanyl 2ml Vial) 50 mcg PRN Q5MIN PRN IV MODERATE PAIN; Start 02/08/17 at 11:00; Stop 02/09/17 at 10:59 Morphine Sulfate 1 mg PRN Q10MIN PRN IV SEVERE PAIN; Start 02/08/17 at 11:00; Stop 02/09/17 at 10:59 Ringer's Solution 1,000 ml @ 30 mls/hr Q24H IV ; Start 02/08/17 at 10:59; Stop 02/08/17 at 22:58 Lidocaine HCl 2 ml PRN 1X PRN ID PRIOR TO IV START; Start 02/08/17 at 11:00; Stop 02/09/17 at 10:59 Hydromorphone HCl (Dilaudid) 0.5 mg PRN Q10MIN PRN IV SEV PAIN, Second choice; Start 02/08/17 at 11:00; Stop 02/09/17 at 10:59 Prochlorperazine Edisylate (Compazine) 5 mg PACU PRN PRN IV NAUSEA, MRX1; Start 02/08/17 at 11:00; Stop 02/09/17 at 10:59 Cellulose 1 each STK-MED ONCE .ROUTE ; Start 02/08/17 at 11:01; Stop 02/08/17 at 11:02; Status DC Iohexol (Omnipaque 300 Mg/ml) 50 ml STK-MED ONCE .ROUTE ; Start 02/08/17 at 11: 01; Stop 02/08/17 at 11:02; Status DC Heparin Sodium (Porcine) (Heparin Sodium) 10,000 unit STK-MED ONCE .ROUTE ; Start 02/08/17 at 11:01; Stop 02/08/17 at 11:02; Status DC Bisacodyl (Dulcolax Supp) 10 mg STK-MED ONCE .ROUTE ; Start 02/08/17 at 11:01; Stop 02/08/17 at 11:02; Status DC Bupivacaine HCl/ Epinephrine Bitart (Sensorcain-Mpf Epi 0.5%-1:[id number]) 10 ml STK -MED ONCE .ROUTE ; Start 02/08/17 at 11:01; Stop 02/08/17 at 11:02; Status DC Active Scripts Active Bynum 5-325 Tablet (Acetaminophen/Hydrocodone Bitart) 1 Each Tablet 1-2 Tab PO Q4-6HRS PRN Bentyl (Dicyclomine Hcl) 10 Mg Capsule 1 Cap PO TID Zofran Odt (Ondansetron) 4 Mg Tab.rapdis 1 Tab SL Q8HRS PRN Allergies Allergies: Coded Allergies: No Known Drug Allergies (Unverified , 01/29/17) ROS Review of System as per HPI, all else is neg Physical Exam General: Alert, Oriented X3, Cooperative, No acute distress HEENT: Atraumatic, PERRLA Lungs: Clear to auscultation Heart: S1S2 Cardiovascular: S1, S2 Breasts: Normal Abdomen: Soft, Other (tenderness epigatsric and rUQ areas) Rectal Exam: not examined PELVIC: Nml ext genitalia Extremities: No clubbing Skin: No rashes Neuro: Normal gait Psych/Mental Status: Mental status NL, Mood NL Vitals Vitals Vital Signs Date Time Temp Pulse Resp B/P (MAP) Pulse Ox O2 Delivery O2 Flow Rate FiO2 02/08/17 08:00 Room Air 02/08/17 07:00 97.9 55 18 97/62 (74) 96 97.9 Labs Labs Laboratory Tests Test 02/07/17 23:45 02/08/17 01:36 White Blood Count 8.9 x10^3/uL (4.0-11.0) Red Blood Count 4.24 x10^6/uL (4.30-5.70) Hemoglobin 13.4 g/dL (13.0-17.5) Hematocrit 38.9 % (39.0-53.0) Mean Corpuscular Volume 92 fL (79-100) Mean Corpuscular Hemoglobin 32 pg (25-35) Mean Corpuscular Hemoglobin Concent 34 g/dL (31-37) Red Cell Distribution Width 12.6 % (11.5-14.5) Platelet Count 254 x10^3/uL (140-400) Neutrophils (%) (Auto) 61 % (31-73) Lymphocytes (%) (Auto) 29 % (24-48) Monocytes (%) (Auto) 6 % (0-9) Eosinophils (%) (Auto) 3 % (0-3) Basophils (%) (Auto) 0 % (0-3) Neutrophils # (Auto) 5.4 x10^3uL (1.8-7.7) Lymphocytes # (Auto) 2.6 x10^3/uL (1.0-4.8) Monocytes # (Auto) 0.6 x10^3/uL (0.0-1.1) Eosinophils # (Auto) 0.2 x10^3/uL (0.0-0.7) Basophils # (Auto) 0.0 x10^3/uL (0.0-0.2) Sodium Level 139 mmol/L (136-145) Potassium Level 3.7 mmol/L (3.5-5.1) Chloride Level 104 mmol/L (98-107) Carbon Dioxide Level 27 mmol/L (21-32) Anion Gap 8 (6-14) Blood Urea Nitrogen 18 mg/dL (8-26) Creatinine 1.2 mg/dL (0.7-1.3) Estimated GFR (Cockcroft-Gault) 66.1 BUN/Creatinine Ratio 15 (6-20) Glucose Level 157 mg/dL (70-99) Calcium Level 8.7 mg/dL (8.5-10.1) Total Bilirubin 0.2 mg/dL (0.2-1.0) Aspartate Amino Transf (AST/SGOT) 23 U/L (15-37) Alanine Aminotransferase (ALT/SGPT) 49 U/L (16-63) Alkaline Phosphatase 69 U/L (46-116) Troponin I Quantitative < 0.017 ng/mL (0.000-0.055) Total Protein 7.8 g/dL (6.4-8.2) Albumin 4.1 g/dL (3.4-5.0) Albumin/Globulin Ratio 1.1 (1.0-1.7) Lipase 181 U/L (73-393) Urine Collection Type Unknown Urine Color Yellow Urine Clarity Clear Urine pH 6.0 Urine Specific [place] >=1.030 Urine Protein Negative mg/dL (NEG-TRACE) Urine Glucose (UA) Negative mg/dL (NEG) Urine Ketones (Stick) Negative mg/dL (NEG) Urine Blood Negative (NEG) Urine Nitrite Negative (NEG) Urine Bilirubin Negative (NEG) Urine Urobilinogen Dipstick 0.2 mg/dL (0.2 mg/dL) Urine Leukocyte Esterase Negative (NEG) Urine RBC Occ /HPF (0-2) Urine WBC 0 /HPF (0-4) Urine Squamous Epithelial Cells Few /LPF Urine Bacteria 0 /HPF (0-FEW) Urine Mucus Mod /LPF Laboratory Tests Test 02/07/17 23:45 02/08/17 01:36 White Blood Count 8.9 x10^3/uL (4.0-11.0) Red Blood Count 4.24 x10^6/uL (4.30-5.70) Hemoglobin 13.4 g/dL (13.0-17.5) Hematocrit 38.9 % (39.0-53.0) Mean Corpuscular Volume 92 fL (79-100) Mean Corpuscular Hemoglobin 32 pg (25-35) Mean Corpuscular Hemoglobin Concent 34 g/dL (31-37) Red Cell Distribution Width 12.6 % (11.5-14.5) Platelet Count 254 x10^3/uL (140-400) Neutrophils (%) (Auto) 61 % (31-73) Lymphocytes (%) (Auto) 29 % (24-48) Monocytes (%) (Auto) 6 % (0-9) Eosinophils (%) (Auto) 3 % (0-3) Basophils (%) (Auto) 0 % (0-3) Neutrophils # (Auto) 5.4 x10^3uL (1.8-7.7) Lymphocytes # (Auto) 2.6 x10^3/uL (1.0-4.8) Monocytes # (Auto) 0.6 x10^3/uL (0.0-1.1) Eosinophils # (Auto) 0.2 x10^3/uL (0.0-0.7) Basophils # (Auto) 0.0 x10^3/uL (0.0-0.2) Sodium Level 139 mmol/L (136-145) Potassium Level 3.7 mmol/L (3.5-5.1) Chloride Level 104 mmol/L (98-107) Carbon Dioxide Level 27 mmol/L (21-32) Anion Gap 8 (6-14) Blood Urea Nitrogen 18 mg/dL (8-26) Creatinine 1.2 mg/dL (0.7-1.3) Estimated GFR (Cockcroft-Gault) 66.1 BUN/Creatinine Ratio 15 (6-20) Glucose Level 157 mg/dL (70-99) Calcium Level 8.7 mg/dL (8.5-10.1) Total Bilirubin 0.2 mg/dL (0.2-1.0) Aspartate Amino Transf (AST/SGOT) 23 U/L (15-37) Alanine Aminotransferase (ALT/SGPT) 49 U/L (16-63) Alkaline Phosphatase 69 U/L (46-116) Troponin I Quantitative < 0.017 ng/mL (0.000-0.055) Total Protein 7.8 g/dL (6.4-8.2) Albumin 4.1 g/dL (3.4-5.0) Albumin/Globulin Ratio 1.1 (1.0-1.7) Lipase 181 U/L (73-393) Urine Collection Type Unknown Urine Color Yellow Urine Clarity Clear Urine pH 6.0 Urine Specific [place] >=1.030 Urine Protein Negative mg/dL (NEG-TRACE) Urine Glucose (UA) Negative mg/dL (NEG) Urine Ketones (Stick) Negative mg/dL (NEG) Urine Blood Negative (NEG) Urine Nitrite Negative (NEG) Urine Bilirubin Negative (NEG) Urine Urobilinogen Dipstick 0.2 mg/dL (0.2 mg/dL) Urine Leukocyte Esterase Negative (NEG) Urine RBC Occ /HPF (0-2) Urine WBC 0 /HPF (0-4) Urine Squamous Epithelial Cells Few /LPF Urine Bacteria 0 /HPF (0-FEW) Urine Mucus Mod /LPF VTE Prophylaxis Ordered VTE Prophylaxis Devices: Yes VTE Pharmacological Prophylaxi: Yes Assessment/Plan Assessment/Plan 1. Acute cholecystitis PLAN: NPO, IVF Will need lap loi Kang pt - agreeable ARIELLE DUEÑAS MD Feb 08, 2017 11:13
--- NOTE | 2017-02-08 11:58 | RAD ---
Intraoperative cholangiogram 02/08/2017 Clinical history: Post laparoscopic cholecystectomy. An intraoperative cholangiogram was performed. The total fluoroscopic time is listed as 0.17 minutes. A single digital spot radiograph of the right upper quadrant of the abdomen was obtained. This demonstrates contrast opacifying the common hepatic duct, left and right hepatic ducts and their branches and the common bile duct. These ducts are normal in caliber. Free spillage of contrast into the duodenum is noted. No filling defect is seen. Impression: Negative study.
[2017-02-08] MEDS ORDERED: PROCHLORPERAZINE 10 MG/2 ML VIAL. ONE (12:03)
[2017-02-08] MEDS: fentaNYL PF VIAL 100 MCG/2 ML VIAL IV PRN ×2 (12:21→12:52)
--- NOTE | 2017-02-08 13:44 | PDOC4 ---
OPERATIVE NOTE Date: Date: Feb 08, 2017 Pre-Op Diagnosis: Calculous cholecystitis Post-Op Diagnosis: same Procedure Performed: Laparoscopic cholecystectomy with cholangiogram Surgeon: Syd Obando Anesthesia Type: GETA plus marcaine 0.5% with epinephrine Blood Loss: minimal Specimans Obtained: gallbladder Findings: large gallstone, edematous indurated gallbladder, normal appearing cholangiogram Complications: none Operative Note: Patient was taken to the OR, induced under GETA, and prepped in the usual fashion. 5 mm port placed in supraumbilical area, right upper quadrant area and 10 port placed in epigastric. The abdominal cavity was normal except for the gallbladder as described above. The triangle of calot was bluntly dissected out and the critical view was obtained. The cystic artery was divided between clips. Cholangiogram was obtained, which was normal. The cystic duct was ligated with hemolok and clips. Gallbladder was taken off the fossa using cautery, placed in an endocatch bag and sent to pathology. Copious irrigation. No evidence of bleeding or bile leak. Fascia repair with 0 vicry. Skin repair with 4 0 monocryl. Dressing applied. Patient tolerated procedure well, sent to PACU in a stable condition. All counts were correct, no immediate complications. SYD OBANDO MD Feb 08, 2017 13:44
[2017-02-08] MEDS ORDERED: KETOROLAC TROMETHAMINE 30 MG/ML INJ. IV PRN (13:45)
[2017-02-08] MEDS ORDERED: 0.9 % SODIUM CHLORIDE 10 ML DISP.SYRIN. IV PRN (13:45)
[2017-02-08] MEDS ORDERED: DEXTROSE 50% 25 GM / 50ML DISP.SYRIN. IV PRN (13:45)
[2017-02-08] MEDS: IV RINGERS,LACTATED 1000ML 1,000 ML IV SCH ×2 (14:30→23:36)
--- NOTE | 2017-02-08 14:53 | EKG ---
[facility] [address] [place] [address] Test Date: 2017-02-08 Test Time: 00:49:34 Pat Name: KATHLEEN CABRAL Department: Room: Gender: M [employer]: : 1975 Requested By: MIKE SHERMAN Order Number: [id number] Reading MD: Measurements Intervals [place]ard Rate: 63 P: 43 OH: 154 QRS: 53 QRSD: 88 T: 31 QT: 394 QTc: 406 Interpretive Statements SINUS RHYTHM QRS(T) CONTOUR ABNORMALITY CONSIDER ANTEROSEPTAL MYOCARDIAL DAMAGE RI6.01 Unconfirmed report No previous ECG available for comparison
[2017-02-08 15:00] VITALS: BP 127/73
[2017-02-08 19:00] VITALS: BP 117/73
[2017-02-08] MEDS: DOCUSATE SODIUM 100 MG CAPSULE. PO SCH (20:30)
[2017-02-08 23:00] VITALS: BP 125/65
--- NOTE | 2017-02-09 00:57 | ACF ---
Admission Forms Criteria ABDOMINAL PAIN Clinical Indications for Admission to Inpatient Care ( [place]/check or initial the applicable condition/criteria): Admission is indicated for ANY ONE of the following (1)(2)(3)(4)(5)(6): [ ]I. Surgery needed that cannot be performed on ambulatory basis [ ]II. Peritoneal signs present (eg, rebound tenderness, rigidity) [ ]III. Evaluation requires patient to not eat or drink for extended period ( eg, more than 24 hours). [X ]IV. Inpatient admission required[B] rather than observation care (see Abdominal Pain: Observation Care guideline as appropriate) because of ANY ONE of the following(7)(8)(9): [ ] a) Hemodynamic instability [ ]b) Severe pain requiring acute inpatient management [X ]c) Identification of etiology or finding that requires inpatient care (eg, aortic dissection, free air,bowel ischemia)(10) [ ]d) Absent bowel sounds with complete ileus (11) [ ]e) Signs of intestinal obstruction[C] [ ]f) Suspected toxic megacolon [ ]g) Severe electrolyte abnormalities requiring inpatient care [ ]h) High fever or infection requiring inpatient admission as indicated by ANY ONE of the following (12)(13): [ ]i) Appropriate outpatient or observation care antimicrobial treatment unavailable, not effective, or not feasible [ ]ii) Documented bacteremia [ ]iii) Temperature greater than 104.9 degrees F (40.5 degrees C) (oral) [ ]iv) Temperature greater than 103.1 degrees F (39.5 degrees C) ( oral) or less than 96.8 degrees F (36 degrees C) (rectal) that does not respond to all emergency treatment measures [ ]i) IV fluid required rather than oral rehydration to replace significant ongoing (eg, for greater than 24 hours) losses (greater than 3 L/m2 per day)(14)(15) [ ]j) Percutaneous or open drainage (eg, abscess, biliary tract) procedures [ ]k) Parenteral nutrition regimen that must be implemented on inpatient basis [ ]l) Other condition, treatment, or monitoring requiring inpatient admission Extended stay beyond goal length of stay may be needed for (1)(3)(4)(10)(16): [ ]a) Surgery (e.g., colectomy, revascularization procedure) [ ]b) Persistent abdominal pain with suspected intra-abdominal process [ ]c) Diagnosed condition requiring continued stay (e.g., pancreatitis, complicated diverticulitis) The original [facility] content created by [facility] has been revised. The portions of the content which have been revised are identified through the use of italic text, and [facility] has neither reviewed nor approved the modified material.All other unmodified content is copyright [facility]. Please see references footnoted in the original [facility] edition 2015 Admission Criteria Met?: Yes CAROL ANN GOLDEN Feb 09, 2017 00:57
[2017-02-09 03:00] VITALS: BP 97/71
[2017-02-09 07:04] LABS: BASO % 0 % (0-3); EOS % 0 % (0-3); HEMATOCRIT 39.4 % (39.0-53.0); HEMOGLOBIN 12.9 g/dL (13.0-17.5); LYMPH # 1.5 x10^3/uL (1.0-4.8); LYMPH % 10 % (24-48); MEAN CORPUSCULAR HEMOGLOBIN 31 pg (25-35); MEAN CORPUSCULAR HGB CONC 33 g/dL (31-37); MEAN CORPUSCULAR VOLUME 93 fL (79-100); MONO % 4 % (0-9); NEUT % 85 % (31-73); PLATELET COUNT 226 x10^3/uL (140-400); RED BLOOD COUNT 4.22 x10^6/uL (4.30-5.70); RED CELL DISTRIBUTION WIDTH 12.6 % (11.5-14.5)
[2017-02-09 07:09] LABS: ALBUMIN 3.5 g/dL (3.4-5.0); CALCIUM 8.4 mg/dL (8.5-10.1); CREATININE 1.1 mg/dL (0.7-1.3); GFR 73.1; POTASSIUM 3.9 mmol/L (3.5-5.1); TOTAL BILIRUBIN 0.3 mg/dL (0.2-1.0)
[2017-02-09 07:20] VITALS: BP 117/64
[2017-02-09] MEDS: DICYCLOMINE HCL 10 MG CAPSULE PO SCH ×2 (08:10→15:04)
[2017-02-09] MEDS: DOCUSATE SODIUM 100 MG CAPSULE. PO SCH (08:10)
[2017-02-09 08:37] LABS: PLT ESTIMATE ADEQUATE (ADEQUATE)
[2017-02-09] MEDS: IV RINGERS,LACTATED 1000ML 1,000 ML IV SCH (09:17)
--- NOTE | 2017-02-09 10:30 | PDOC ---
SURGICAL PROGRESS NOTE Subjective Pt with c/o mild soreness, but otherwise doing well Vital Signs Vital Signs Date Time Temp Pulse Resp B/P (MAP) Pulse Ox O2 Delivery O2 Flow Rate FiO2 02/09/17 07:20 97.5 67 16 117/64 (81) 95 Nasal Cannula 2.0 97.5 I&O Intake and Output 02/09/17 07:00 Intake Total 8200 ml Output Total 400 ml Balance 7800 ml Intake Oral 200 ml IV Total 7000 ml Other 1000 ml Output Urine Total 400 ml # Voids 2 General: Alert, Oriented X3, Cooperative, No acute distress Abdomen: Soft, No tenderness, Other (dressing c/d/i) Labs Laboratory Tests Test 02/07/17 23:45 02/08/17 01:36 02/09/17 06:15 02/09/17 06:25 White Blood Count 8.9 x10^3/uL (4.0-11.0) 15.0 x10^3/uL (4.0-11.0) Red Blood Count 4.24 x10^6/uL (4.30-5.70) 4.22 x10^6/uL (4.30-5.70) Hemoglobin 13.4 g/dL (13.0-17.5) 12.9 g/dL (13.0-17.5) Hematocrit 38.9 % (39.0-53.0) 39.4 % (39.0-53.0) Mean Corpuscular Volume 92 fL (79-100) 93 fL (79-100) Mean Corpuscular Hemoglobin 32 pg (25-35) 31 pg (25-35) Mean Corpuscular Hemoglobin Concent 34 g/dL (31-37) 33 g/dL (31-37) Red Cell Distribution Width 12.6 % (11.5-14.5) 12.6 % (11.5-14.5) Platelet Count 254 x10^3/uL (140-400) 226 x10^3/uL (140-400) Neutrophils (%) (Auto) 61 % (31-73) 85 % (31-73) Lymphocytes (%) (Auto) 29 % (24-48) 10 % (24-48) Monocytes (%) (Auto) 6 % (0-9) 4 % (0-9) Eosinophils (%) (Auto) 3 % (0-3) 0 % (0-3) Basophils (%) (Auto) 0 % (0-3) 0 % (0-3) Neutrophils # (Auto) 5.4 x10^3uL (1.8-7.7) 12.8 x10^3uL (1.8-7.7) Lymphocytes # (Auto) 2.6 x10^3/uL (1.0-4.8) 1.5 x10^3/uL (1.0-4.8) Monocytes # (Auto) 0.6 x10^3/uL (0.0-1.1) 0.6 x10^3/uL (0.0-1.1) Eosinophils # (Auto) 0.2 x10^3/uL (0.0-0.7) 0.0 x10^3/uL (0.0-0.7) Basophils # (Auto) 0.0 x10^3/uL (0.0-0.2) 0.0 x10^3/uL (0.0-0.2) Sodium Level 139 mmol/L (136-145) 140 mmol/L (136-145) Potassium Level 3.7 mmol/L (3.5-5.1) 3.9 mmol/L (3.5-5.1) Chloride Level 104 mmol/L (98-107) 106 mmol/L (98-107) Carbon Dioxide Level 27 mmol/L (21-32) 26 mmol/L (21-32) Anion Gap 8 (6-14) 8 (6-14) Blood Urea Nitrogen 18 mg/dL (8-26) 9 mg/dL (8-26) Creatinine 1.2 mg/dL (0.7-1.3) 1.1 mg/dL (0.7-1.3) Estimated GFR (Cockcroft-Gault) 66.1 73.1 BUN/Creatinine Ratio 15 (6-20) 8 (6-20) Glucose Level 157 mg/dL (70-99) 112 mg/dL (70-99) Calcium Level 8.7 mg/dL (8.5-10.1) 8.4 mg/dL (8.5-10.1) Total Bilirubin 0.2 mg/dL (0.2-1.0) 0.3 mg/dL (0.2-1.0) Aspartate Amino Transf (AST/SGOT) 23 U/L (15-37) 54 U/L (15-37) Alanine Aminotransferase (ALT/SGPT) 49 U/L (16-63) 91 U/L (16-63) Alkaline Phosphatase 69 U/L (46-116) 71 U/L (46-116) Troponin I Quantitative < 0.017 ng/mL (0.000-0.055) Total Protein 7.8 g/dL (6.4-8.2) 7.0 g/dL (6.4-8.2) Albumin 4.1 g/dL (3.4-5.0) 3.5 g/dL (3.4-5.0) Albumin/Globulin Ratio 1.1 (1.0-1.7) 1.0 (1.0-1.7) Lipase 181 U/L (73-393) Urine Collection Type Unknown Urine Color Yellow Urine Clarity Clear Urine pH 6.0 Urine Specific [place] >=1.030 Urine Protein Negative mg/dL (NEG-TRACE) Urine Glucose (UA) Negative mg/dL (NEG) Urine Ketones (Stick) Negative mg/dL (NEG) Urine Blood Negative (NEG) Urine Nitrite Negative (NEG) Urine Bilirubin Negative (NEG) Urine Urobilinogen Dipstick 0.2 mg/dL (0.2 mg/dL) Urine Leukocyte Esterase Negative (NEG) Urine RBC Occ /HPF (0-2) Urine WBC 0 /HPF (0-4) Urine Squamous Epithelial Cells Few /LPF Urine Bacteria 0 /HPF (0-FEW) Urine Mucus Mod /LPF Segmented Neutrophils % 87 % (35-66) Band Neutrophils % 2 % (0-9) Lymphocytes % 8 % (24-48) Monocytes % 3 % (0-10) Platelet Estimate Adequate (ADEQUATE) Laboratory Tests Test 02/09/17 06:15 02/09/17 06:25 White Blood Count 15.0 x10^3/uL (4.0-11.0) Red Blood Count 4.22 x10^6/uL (4.30-5.70) Hemoglobin 12.9 g/dL (13.0-17.5) Hematocrit 39.4 % (39.0-53.0) Mean Corpuscular Volume 93 fL (79-100) Mean Corpuscular Hemoglobin 31 pg (25-35) Mean Corpuscular Hemoglobin Concent 33 g/dL (31-37) Red Cell Distribution Width 12.6 % (11.5-14.5) Platelet Count 226 x10^3/uL (140-400) Neutrophils (%) (Auto) 85 % (31-73) Lymphocytes (%) (Auto) 10 % (24-48) Monocytes (%) (Auto) 4 % (0-9) Eosinophils (%) (Auto) 0 % (0-3) Basophils (%) (Auto) 0 % (0-3) Neutrophils # (Auto) 12.8 x10^3uL (1.8-7.7) Lymphocytes # (Auto) 1.5 x10^3/uL (1.0-4.8) Monocytes # (Auto) 0.6 x10^3/uL (0.0-1.1) Eosinophils # (Auto) 0.0 x10^3/uL (0.0-0.7) Basophils # (Auto) 0.0 x10^3/uL (0.0-0.2) Segmented Neutrophils % 87 % (35-66) Band Neutrophils % 2 % (0-9) Lymphocytes % 8 % (24-48) Monocytes % 3 % (0-10) Platelet Estimate Adequate (ADEQUATE) Sodium Level 140 mmol/L (136-145) Potassium Level 3.9 mmol/L (3.5-5.1) Chloride Level 106 mmol/L (98-107) Carbon Dioxide Level 26 mmol/L (21-32) Anion Gap 8 (6-14) Blood Urea Nitrogen 9 mg/dL (8-26) Creatinine 1.1 mg/dL (0.7-1.3) Estimated GFR (Cockcroft-Gault) 73.1 BUN/Creatinine Ratio 8 (6-20) Glucose Level 112 mg/dL (70-99) Calcium Level 8.4 mg/dL (8.5-10.1) Total Bilirubin 0.3 mg/dL (0.2-1.0) Aspartate Amino Transf (AST/SGOT) 54 U/L (15-37) Alanine Aminotransferase (ALT/SGPT) 91 U/L (16-63) Alkaline Phosphatase 71 U/L (46-116) Total Protein 7.0 g/dL (6.4-8.2) Albumin 3.5 g/dL (3.4-5.0) Albumin/Globulin Ratio 1.0 (1.0-1.7) Problem List Problems Medical Problems: (1) Abdominal pain Status: Acute Assessment/Plan s/p eliseo [place] to d/c home Problems: WASHINGTON OBANDO MD Feb 09, 2017 10:30
[2017-02-09 10:58] VITALS: BP 113/69
[2017-02-09 14:50] VITALS: BP 115/64
--- NOTE | 2017-02-10 13:46 | PATHOLOGY ---
PATHOLOGY REPORT * * * * * * * * FINAL DIAGNOSIS: Gallbladder, laparoscopic cholecystectomy: - Cholelithiasis. - Acute and chronic cholecystitis. 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 COMMENT: There is no evidence of malignancy. (JPM:mgr; 02/10/2017) REPORT ELECTRONICALLY SIGNED BY: Will Mccarthy M.D. DATE/TIME: 02/10/2017 13:45 * * * * * * * * GROSS PATHOLOGY: Received in formalin labeled "[place], gallbladder," is a 7.8 x 2.5 x 1.8 cm, intact gallbladder with yellow low serosal surfaces. Opening the gallbladder reveals bright yellow green, velvety mucosa and an average wall thickness of 0.4 cm. A single 2.3 cm ovoid calculus is present and no masses are noted grossly. Beef Tagger sections from the body and fundus are submitted along with the proximal margin in cassette A1. Along the serosal surface of the neck of the gallbladder there is a rubbery pink tuttle lymph node measuring 0.6 cm in maximum dimensions. This is submitted in toto, also in cassette A1. (JPM; 02/09/17) INITIAL CPT CODE(S): A; 28142 Professional services [place] [address] Technical services performed by [facility] at [address] [place] [address], [facility] [address] [address]. SPECIMEN(S) RECEIVED: A.Gallbladder CLINICAL HISTORY: Abdominal pain PATIENT: BRYN CABRAL /AGE: 6 1975 (Age: 41) PATIENT #: [id number] ALT CASE #: SPECIMEN COLLECTION DATE: 02/08/2017 SPECIMEN RECEIVED DATE: 02/09/2017 [facility] - [id number] [place] [address] - PHONE: [phone] * * * END OF REPORT * * *
== END 2017-02-09 15:58 | disposition home or self-care (01) | DRG 419 ==
LOC: ER 23:34 → 5 SOUTH 02-08 02:06
PROVIDERS: ADMIT Internal Medicine; ATTEND Internal Medicine
PROC: BF131ZZ Fluoroscopy of Gallbladder and Bile Ducts using Low Osmolar Contrast (ICD-10-PCS; 2017-02-08)
PROC: 0FT44ZZ Resection of Gallbladder, Percutaneous Endoscopic Approach (ICD-10-PCS; principal; 2017-02-08 14:00)
DX: K80.00 Calculus of gallbladder with acute cholecystitis without obstruction (principal); Z87.891 Personal history of nicotine dependence; Z83.3 Family history of diabetes mellitus; Z80.9 Family history of malignant neoplasm, unspecified
CPT/HCPCS: 36415; 74177; 74300; 76705; 80053; 81001; 83690; 84484; 85007; 85025; 88304; 93005; 96361; 96374; J0780; J1100; J1644; J1885; J2250; J2270; J2405; J2704; J2710; J3010; J3490; J7030; J7040; J7120; Q9967; 99285-25; J2001